=== PATIENT | male | born 1970 | race Caucasian/White ===

== ENCOUNTER 2020-10-13 14:14 | Emergency (ER) | payer MEDICAID, SELFPAY ==
[2020-10-13 14:15] VITALS: BP 118/67; PULSE 78; RESP 16; TEMP 36.7; O2SAT 98; BMI 17.4
--- NOTE | 2020-10-13 14:39 | HMH.EDWEAK ---
ED Disposition Clinical Impression: Left against medical advice, Lung mass, Hyponatremia Disposition: Left Against Medical Advice Condition on Discharge: Fair Referrals: Devon Main [Primary Care Provider] - - Critical Care Critical Care Time: No Attestation: On , the high probability of a clinically significant, sudden or life threatening deterioration of the following system(s) required my full and direct attention, intervention and personal management. The time I documented below is in addition to time spent performing reported procedures but includes the following listed in this critical care notation. Medical Decision Making - Medical Records Medical records reviewed: Yes: I reviewed the patient's medical records. - Mike Inquiry Pt receiving controlled substance: No Vital Signs: 10/13/20 14:15 10/13/20 15:30 10/13/20 16:00 Temperature 98.0 F Temperature Source Oral Pulse Rate Pulse Rate [Right] 78 77 77 Respiratory Rate 16 Blood Pressure Blood Pressure [Right Arm] 118/67 127/67 109/77 L Blood Pressure Mean [Right Arm] 84 87 87 Blood Pressure Source Blood Pressure Source [Right Arm] Automatic Cuff Automatic Cuff Automatic Cuff Blood Pressure Position Blood Pressure Position [Right Arm] Sitting Sitting Sitting 02 Sat by Pulse Oximetry 98 90 L 94 L Oxygen Delivery Method Room Air Room Air Room Air 10/13/20 17:29 Temperature 98 F Temperature Source Oral Pulse Rate 87 Pulse Rate [Right] Respiratory Rate 16 Blood Pressure 142/70 H Blood Pressure [Right Arm] Blood Pressure Mean [Right Arm] Blood Pressure Source Automatic Cuff Blood Pressure Source [Right Arm] Blood Pressure Position Sitting Blood Pressure Position [Right Arm] 02 Sat by Pulse Oximetry Oxygen Delivery Method Room Air - Lab Data Lab Results 10/13/20 14:28: WBC 14.9 H, RBC 4.17 L, Hgb 13.2 L, Hct 40.5 L, MCV 97.1 H, MCH 31.7 H, MCHC 32.7, RDW 12.9, Plt Count 412, MPV 7.6, Neut % (Auto) 82.2 H, Lymph % (Auto) 9.7 L, Mathews % (Auto) 6.8, Eos % (Auto) 0.3, Baso % (Auto) 1.0, Neut # (Auto) 12.3 H, Lymph # (Auto) 1.4, Mathews # (Auto) 1.0, Eos # (Auto) 0.0, Baso # (Auto) 0.2 12/28/20 14:28: PT 11.3, INR 1.02, APTT 29.3 10/13/20 14:28: Sodium 121 L, Potassium 3.2 L, Chloride 83 L, Carbon Dioxide 33 H, Anion Gap 8.2, BUN 3 L, Creatinine 0.50 L, Estimated Creat Clear 135, Estimated GFR 178, Est GFR ( Amer) 216, Glucose 240 H, Calcium 7.9 L, Magnesium 1.6, Total Bilirubin 0.6, AST 31, ALT 19, Alkaline Phosphatase 133 H, Total Protein 7.0, Albumin 2.9 L, Globulin 4.1 H, Albumin/Globulin Ratio 0.7 L 10/13/20 14:28: SARS-CoV-2 IgG Ab (Rapid) Negative, SARS-CoV-2 IgM Ab (Rapid) Negative Result diagrams: 10/13/20 14:28 10/13/20 14:28 Orders (Tests/Meds): ED MEDICATIONS Discontinued Medications Generic Name Dose Route Start Last Admin Trade Name Freq PRN Reason Stop Dose Admin Sodium Chloride 1,000 mls @ 999 mls/hr 10/13/20 14:45 10/13/20 15:08 Sod Chlor 0.9% 1000ml Bag IV 10/13/20 15:45 999 mls/hr .Q1H1M DANA Administration Iopamidol 75 ml 10/13/20 16:20 10/13/20 16:20 Iopamidol-370 (76%);100ml Bottle IV 10/13/20 16:21 75 ml ONCE ONE Administration Sodium Chloride 10 ml 10/13/20 16:20 10/13/20 16:20 Sodium Chloride 0.9% 10ml Syr (Rad Only) IV 10/13/20 16:21 10 ml ONCE ONE Administration ORDERS Category Date Time Status CT abdomen pelvis w con Stat Cat Scan 10/13/20 14:[address] chest w con Stat Cat Scan 10/13/20 14:[address] head/brain wo con Stat Cat Scan 10/13/20 14:42 Taken - CT Data CT Scan: Head, Abdomen, Chest Time Received: 18:[address] Reviewed: Yes: I have viewed the radiologist's interpretation Preliminary Findings: Abnormal Findings Narrative: Patient has mass in the left upper lobe with cavitary lesion surrounding. Concerning for lung metastatic disease. - ECG Data Tracing #1 I reviewed this ECG and interpreted as documente
--- NOTE | 2020-10-13 14:42 | CT_ITS ---
PROCEDURE: CT ABDOMEN PELVIS W CON CLINICAL INDICATION: malignancy evaluation, weight loss generalized abdominal pain COMPARISON: No exams were available for comparison TECHNIQUE: IV Contrast: 75ML OPTIRAY 350 Oral Contrast none given Axial images obtained with sagittal and coronal reformats. All CT scans at the facility use one or more dose reduction, viz: automated exposure control, ma/kV adjustment per patient size (including targeted exams where dose is matched to indication, i.e. head), or iterative reconstruction technique. FINDINGS: Lower thorax: There is postinflammatory scarring versus atelectasis right lower lateral chest chest the left base is clear. There is no pleural fluid. ABDOMEN: Liver: No masses or biliary dilatation. Gallbladder: Somewhat contracted but there are no definite gallstones or sludge seen. Pancreas: No masses or peripancreatic fluid collections. Spleen: unremarkable Adrenals: unremarkable Kidneys/ureters: Kidneys are normal in size and show symmetrical function both appearing normal ABDOMEN & PELVIS: Stomach bowel: The stomach and duodenal sweep appear normal. The proximal small bowel, there is mild fluid-filled dilated distal small bowel loops with mild bowel wall thickening. There is questionable bowel wall thickening mid and upper ascending colon. The transverse descending and sigmoid colon and rectum appear grossly normal.. Peritoneum: No abnormal fluid collections. No obvious inflammatory changes. No free air. Lymph nodes: No enlarged lymph nodes apparent. Vasculature: There is scattered arteriosclerotic calcification of the abdominal aorta been proximal common iliac arteries but there is no aneurysm. Bones: No acute fracture PELVIS: Reproductive: unremarkable Bladder: The urinary bladder is grossly normal. There is a small amount of free fluid in the pelvis of [place]. Appendix: The appendix is not definitely visualized but there are no definite pericecal inflammatory changes. IMPRESSION: Mildly dilated distal small bowel loops with mild bowel wall thickening and haziness and mild wall thickening of the upper ascending colon and findings are suggestive of ileal colitis Dictated by: Dr. Seth Mace MD 10/15/2020 07:55 Dr. Seth Mace MD in [place] 10/15/2020 07:55
--- NOTE | 2020-10-13 14:42 | CT_ITS ---
PROCEDURE: CT HEAD/BRAIN WO CON CLINICAL INDICATION: malignancy evaluation, headaches, recent weight loss COMPARISON: No exams were available for comparison TECHNIQUE: Axial images obtained. All CT scans at the facility use one or more dose reduction, viz: automated exposure control, ma/kV adjustment per patient size (including targeted exams where dose is matched to indication, i.e. head), or iterative reconstruction technique. 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 There is moderate ventriculomegaly. 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 There has been a previous left frontal craniotomy, the basilar cisterns, sylvian fissures and cortical sulci are somewhat prominent. There is no definite ischemic infarct and there is no bleed. There are no extra-axial fluid collections. The bony calvarium appears intact, the mastoids are clear. 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 Ronaldo cisterna magna noted as well. No definite acute intracranial pathology noted Dictated by: Dr. Seth Mace MD 10/13/2020 20:53 Dr. Seth Mace MD in [place] 10/13/2020 20:53
--- NOTE | 2020-10-13 14:42 | XR_ITS ---
PROCEDURE: XR CHEST PORTABLE CLINICAL HISTORY: weakness in legs, difficulty walking COMPARISON: No exams were available for comparison FINDINGS: The cardiomediastinal silhouette and pulmonary vascularity are within normal limits. The lungs are well expanded. There is slight lateral elevation right hemidiaphragm with mild blunting right costophrenic angle. There is a diffuse pneumonic infiltrate right upper lobe possible cavitary lesions near the apex. There is diffuse pleural thickening right apex. The left lung smith well expanded and clear. No acute bony abnormalities. IMPRESSION: Diffuse pneumonic infiltrate right upper lobe with pleural thickening and possible cavitation and diffuse pleural scarring right costophrenic angle and since there are no previous studies available for comparison consider follow-up CT scan of the chest for better overall evaluation. Dictated by: Dr. Seth Mace MD 10/13/2020 15:41 Dr. Seth Mace MD in [place] 10/13/2020 15:41
--- NOTE | 2020-10-13 14:42 | CT_ITS ---
PROCEDURE: CT CHEST W CON CLINCAL INDICATION: malignancy evaluation, abnormal chest film, weight loss COMPARISON: Portable upright chest 10/13/2020 TECHNIQUE: IV Contrast: 75ml Isovue 370 Axial images obtained with sagittal and coronal reformats. All CT scans at the facility use one or more dose reduction, viz: automated exposure control, ma/kV adjustment per patient size (including targeted exams where dose is matched to indication, i.e. head), or iterative reconstruction technique. FINDINGS: HEART AND MEDIASTINAL STRUCTURES: Unremarkable. LUNGS AND PLEURAL SPACES: There is diffuse infiltrate with multiple cavitary lesions right upper lobe the largest cavity the apical segment. There is pleural based mass partially fluid-filled at the lower extent of the complex cavitary infiltrate. This mass measures approximately 4.4 x 4.2 by 3.7 cm. Mild underlying emphysematous changes likely centrilobular seen in the upper lung smith bilaterally. There is minimal right paratracheal and right hilar adenopathy. Both lower lung smith are clear though there is minimal atelectasis or scarring at the right lateral base. BONY STRUCTURES: There incompletely healed left rib fractures involving left ribs 3, 4, 5 and 6. There is non recent compression fractures of 2 upper thoracic vertebrae likely T6 and T7. No obvious lytic or blastic lesions are seen the bony thorax. UPPER ABDOMEN: Unremarkable. ADDITIONAL FINDINGS: No other significant abnormalities. IMPRESSION: Markedly abnormal appearing right upper lobe with cavitary lesions and pleural base mass this appears to be strongly suggestive of bronchogenic carcinoma Dictated by: Dr. Seth Mace MD 10/15/2020 08:10 Dr. Seth Mace MD in [place] 10/15/2020 08:10
[2020-10-13 15:04] LABS: Basophils # 0.2 K/mm3 (0-0.2); Eosinophils % 0.3 % (0.1-12.0); Hematocrit 40.5 % (42.0-52.0); Hemoglobin 13.2 g/dL (14.1-18.0); Lymphocytes # 1.4 K/mm3 (0.7-4.5); Lymphocytes % 9.7 % (10-50); Mean Corpuscular HGB Conc 32.7 g/dL (31.8-35.4); Mean Corpuscular Hemoglobin 31.7 pg (27.0-31.2); Mean Corpuscular Volume 97.1 fl (80-94); Mean Platelet Volume 7.6 fl (7.4-10.4); Monocytes % 6.8 % (1.7-9.3); Neutrophils # 12.3 K/mm3 (1.8-7.8); Neutrophils % 82.2 % (37.0-80.0); Platelet Count 412 K/mm3 (142-424); Red Blood Count 4.17 M/mm3 (4.60-6.20); Red Cell Distribution Width 12.9 % (11.5-17.5); White Blood Count 14.9 K/mm3 (4.8-10.8)
[2020-10-13 15:09] LABS: Chloride 83 mmol/L (98-107); Potassium 3.2 mmoL/L (3.5-5.1); Sodium 121 mmol/L (136-145)
[2020-10-13 15:12] LABS: Alanine Aminotransferase 19 U/L (12-78); Albumin Level 2.9 g/dl (3.5-5.0); Albumin/Globulin Ratio 0.7 (1.1-1.8); Alkaline Phosphatase 133 U/L (38-126); Anion Gap 8.2 mEq/L (5-15); Aspartate Amino Transferase 31 U/L (17-59); Bilirubin,Total 0.6 mg/dl (0.2-1.3); Blood Urea Nitrogen 3 mg/dl (9-20); Calcium 7.9 mg/dl (8.4-10.2); Carbon Dioxide 33 mmol/L (22.0-30.0); Creatinine Clearance Estimated 135 mL/min (50-200); Estimated Glomerular Filt Rate 178 ml/min (>60); GFR (African American) 216 ML/MIN (>60); Globulin 4.1 g/dL (1.3-3.2); Glucose 240 mg/dl (74-100)
[2020-10-13 15:13] LABS: Magnesium 1.6 mg/dl (1.6-2.3)
[2020-10-13 15:14] LABS: Activated Partial Thrombo Time 29.3 seconds (23.6-34.0); INR 1.02 (0.9-1.1); Prothrombin Time 11.3 seconds (9.4-11.8)
[2020-10-13 15:30] VITALS: BP 127/67; PULSE 77; O2SAT 90
[2020-10-13 16:00] VITALS: BP 109/77; PULSE 77; O2SAT 94
[2020-10-13 17:17] LABS: Coronavirus 19 IgG Antibody Negative (Negative); Coronavirus 19 IgM Antibody Negative (Negative)
--- NOTE | 2020-10-13 17:27 | PC.NURSE ---
Dr. Harmon spoke with pt about admission. PT advised he wanted to speak with his . MD went back into speak with patient and declined admission. PT signed AMA form and left with no issues. Advised pt he need to follow up with PCP/.
[2020-10-13 17:29] VITALS: BP 142/70; PULSE 87; RESP 16; TEMP 36.6; O2SAT 98
== END 2020-10-13 17:31 | disposition left against medical advice (07) ==
PROVIDERS: Emergency Provider Student in an Organized Health Care Education/Training Program; PCP Internal Medicine
DX: R91.8 Other nonspecific abnormal finding of lung field (principal); E87.1 Hypo-osmolality and hyponatremia; J44.9 Chronic obstructive pulmonary disease, unspecified; F10.20 Alcohol dependence, uncomplicated; F17.210 Nicotine dependence, cigarettes, uncomplicated; R73.9 Hyperglycemia, unspecified; Z01.84 Encounter for antibody response examination
CPT/HCPCS: 70450; 71045; 71260; 74177; 80053; 83735; 85025; 85610; 85730; 86328; 96365; 99283; Q9967

== ENCOUNTER 2022-01-27 15:24 | Emergency (ER) | payer MEDICAID, SELFPAY ==
[2022-01-27] VITALS (9 sets, daily range): BP systolic 142–165; BP diastolic 90–104; PULSE 82–115; RESP 18–19; TEMP 36.6–36.7; O2SAT 97–99; BMI 17.9
--- NOTE | 2022-01-27 15:23 | PC.NURSE ---
Requesting medical records from [facility]
--- NOTE | 2022-01-27 15:32 | XR_ITS ---
FINAL REPORT CLINICAL HISTORY: weakness, SMOKER COMPARISON: October 13, 2020 FINDINGS: SINGLE VIEW CHEST. The heart is mildly enlarged. The mediastinum is unremarkable. There is volume loss in the right hemithorax. There is abnormal opacity at the right apex consistent with pleural parenchymal scarring. There is no pneumothorax. IMPRESSION: Pulmonary hyperinflation consistent with obstructive airways disease. Progressive volume loss with pleural and parenchymal scarring at the right apex. Reviewed, Interpreted and Dictated by José De Los Santos MD Transcribed by Meryl Lamas Authenticated by José De Los Santos MD on 01/27/2022 04:38:57 PM [facility]
[2022-01-27 15:41] LABS: Basophils # 0.1 K/mm3 (0-0.2); Basophils % 1.2 % (0.1-2.0); Eosinophils # 0.2 K/mm3 (0.0-0.4); Eosinophils % 1.8 % (0.1-12.0); Hematocrit 46.7 % (42.0-52.0); Hemoglobin 15.7 g/dL (14.1-18.0); Lymphocytes # 1.2 K/mm3 (0.7-4.5); Lymphocytes % 13.9 % (10-50); Mean Corpuscular HGB Conc 33.6 g/dL (31.8-35.4); Mean Corpuscular Hemoglobin 32.2 pg (27.0-31.2); Mean Corpuscular Volume 95.9 fl (80-94); Mean Platelet Volume 8.1 fl (7.4-10.4); Monocytes % 11.7 % (1.7-9.3); Neutrophils # 6.2 K/mm3 (1.8-7.8); Neutrophils % 71.4 % (37.0-80.0); Platelet Count 340 K/mm3 (142-424); Red Blood Count 4.87 M/mm3 (4.60-6.20); Red Cell Distribution Width 13.5 % (11.5-17.5); White Blood Count 8.8 K/mm3 (4.8-10.8)
--- NOTE | 2022-01-27 15:41 | ECG_ITS ---
APPROVED REPORT Exam: Resting ECG HR:89 bpm ECG Measurements Heart Rate 89 AXES UT 159 P 70 QRSd 102 QRS 61 QT 393 T 74 QTc 440 Conclusion SINUS RHYTHM TALL T-WAVES, SUGGESTS HYPERKALEMIA ABNORMAL ECG UNCONFIRMED REPORT Electronically signed by : Jace Gonzalez MD 01/28/2022 17:42:40
[2022-01-27 15:43] LABS: Chloride 87 mmol/L (98-107); Potassium 3.7 mmoL/L (3.5-5.1); Sodium 124 mmol/L (136-145)
[2022-01-27 15:46] LABS: Alanine Aminotransferase 26 U/L (12-78); Albumin Level 4.5 g/dl (3.5-5.0); Alkaline Phosphatase 187 U/L (38-126); Anion Gap 14.7 mEq/L (5-15); Aspartate Amino Transferase 54 U/L (17-59); Blood Urea Nitrogen 8 mg/dl (9-20); Carbon Dioxide 26 mmol/L (22.0-30.0); Creatinine Clearance Estimated 135 mL/min (50-200); Estimated Glomerular Filt Rate 177 ml/min (>60); GFR (African American) 214 ML/MIN (>60); Globulin 4.4 g/dL (1.3-3.2); Total Protein,Serum 8.9 g/dl (6.3-8.2)
[2022-01-27 15:47] LABS: Calcium 8.6 mg/dl (8.4-10.2); Glucose 85 mg/dl (74-100)
--- NOTE | 2022-01-27 15:53 | PC.NURSE ---
Received records from [facility]
--- NOTE | 2022-01-27 16:23 | HMH.EDGENADL ---
ED Disposition Clinical Impression: Weakness, Alcoholism, Hyponatremia Right hand fracture Qualifiers: Encounter type: initial encounter Fracture type: closed Qualified Code(s): S62.91XA - Unspecified fracture of right wrist and hand, initial encounter for closed fracture Multiple rib fractures Qualifiers: Encounter type: initial encounter Fracture type: closed Laterality: unspecified laterality Qualified Code(s): S22.49XA - Multiple fractures of ribs, unspecified side, initial encounter for closed fracture Sternal fracture Qualifiers: Encounter type: initial encounter Sternal location: unspecified Fracture type: closed Qualified Code(s): S22.20XA - Unspecified fracture of sternum, initial encounter for closed fracture Lumbar transverse process fracture Qualifiers: Encounter type: initial encounter Fracture type: closed Qualified Code(s): S32.009A - Unspecified fracture of unspecified lumbar vertebra, initial encounter for closed fracture Thoracic compression fracture Qualifiers: Encounter type: initial encounter Thoracic vertebra fracture level: unspecified thoracic vertebra Qualified Code(s): S22.000A - Wedge compression fracture of unspecified thoracic vertebra, initial encounter for closed fracture Scapula fracture Qualifiers: Encounter type: initial encounter Scapula location: coracoid process Fracture type: closed Fracture alignment: nondisplaced Laterality: right Qualified Code(s): S42.134A - Nondisplaced fracture of coracoid process, right shoulder, initial encounter for closed fracture Clavicle fracture Qualifiers: Encounter type: initial encounter Clavicle location: sternal end Fracture type: closed Fracture alignment: nondisplaced Laterality: left Qualified Code(s): S42.018A - Nondisplaced fracture of sternal end of left clavicle, initial encounter for closed fracture Humerus fracture Qualifiers: Encounter type: initial encounter Humerus Location: proximal Fracture type: closed Fracture morphology: unspecified fracture morphology Laterality: left Qualified Code(s): S42.202A - Unspecified fracture of upper end of left humerus, initial encounter for closed fracture Disposition: Left Against Medical Advice Condition on Discharge: Serious Referrals: Devon Main [Primary Care Provider] - - Critical Care Critical Care Time: No Attestation: On 01/27/22, the high probability of a clinically significant, sudden or life threatening deterioration of the following system(s) required my full and direct attention, intervention and personal management. The time I documented below is in addition to time spent performing reported procedures but includes the following listed in this critical care notation. Medical Decision Making - Medical Records Medical records reviewed: Yes: I reviewed the patient's medical records. MR Comment: Emergency department note from [facility] obtained from visit 01/25/2022, reviewed. Patient is reported to have gone there for a fall with an injury to his ribs and his hand. He was diagnosed with a displaced angulated fracture of the first proximal metacarpal. He had x-rays of his left ribs which showed multiple rib fractures most appeared to be healing. - Mike Inquiry Pt receiving controlled substance: No Vital Signs: 01/27/22 15:19 01/27/22 15:25 01/27/22 15:30 Temperature 97.9 F Temperature Source Oral Pulse Rate Pulse Rate [Left Radial] 88 Respiratory Rate 18 Blood Pressure 163/101 H 155/103 H Blood Pressure [Right Arm] 163/101 H Blood Pressure Mean 116 114 Blood Pressure Mean [Right Arm] 121 Blood Pressure Source [Right Arm] Automatic Cuff Blood Pressure Position [Right Arm] Sitting 02 Sat by Pulse Oximetry 98 Oxygen Delivery Method Room Air 01/27/22 16:00 01/27/22 16:30 Temperature Temperature Source Pulse Rate 115 H 100 H Pulse Rate [Left Radial] Respiratory Rate Blood Pressure 165/102 H 162/104 H Blood Pressure [R
--- NOTE | 2022-01-27 16:27 | PC.NURSE ---
ED MD at
--- NOTE | 2022-01-27 16:46 | CT_ITS ---
PROCEDURE INFORMATION: Exam: CT Chest With Contrast; Diagnostic Exam date and time: 01/27/2022 5:30 PM Age: 51 years old Clinical indication: Injury or trauma; Fall; Blunt trauma (contusions or hematomas); Additional info: Falls x 3 days ago TECHNIQUE: Imaging protocol: Diagnostic computed tomography of the chest with contrast. Radiation optimization: All CT scans at this facility use at least one of these dose optimization techniques: automated exposure control; mA and/or kV adjustment per patient size (includes targeted exams where dose is matched to clinical indication); or iterative reconstruction. Contrast material: ISOVUE; Contrast volume: 75 ml; Contrast route: IV; COMPARISON: CT CHEST W CON 10/13/2020 4:10 PM FINDINGS: Lungs: There is residual cystic emphysematous change in the right lung apex, with decreased size and density of cavitary masses compared with 10/13/2020, consistent with improved malignancy or infection since the prior exam. Residual dense fibrosis or scarring in the right apex with likely traction bronchiectasis. Milder patchy interstitial disease in the left apex appears chronic compared with the prior exam. No acute consolidation. New atelectasis in the posterior lower lungs. Pleural spaces: No pleural effusion. No pneumothorax. Right apical pleural thickening. Heart: The heart appears within upper limits normal. No significant pericardial effusion. Coronary artery calcification is present. Lymph nodes: Small calcified mediastinal and hilar lymph nodes.No significantly enlarged lymph nodes by short axis criteria. Aorta: There is no aortic aneurysm. Calcified atherosclerotic plaques. Bones/joints: Multiple thoracic vertebral body compression fracture deformities appear chronic compared with the prior CT from 10/13/2020. The posteromedial right 5th rib fracture deformity appears chronic compared with 2020, but the medial 6th through 9th rib deformities appear new compared with the prior exam , though also having a likely chronic or subacute appearance with some bony remodeling. Posteromedial left 12th and 11th rib fracture deformities are new compared with 2020, though also indeterminate age with some bony remodeling. Multiple other rib deformities are chronic compared with the prior CT. There is an acute appearing avulsion fracture suggested through the base of the coracoid process of the right scapula on series 3, images 12 -15, and sagittal images 20-22, nondisplaced, and new compared with the prior CT. There is a new fracture deformity of the medial left clavicle with over riding, coronal images 28-30 and axial series 3, images 20 5-29, though this appears more likely chronic or subacute than acute. There is a new impacted fracture of the left humerus neck compared with the prior CT. Soft tissues: There are no soft tissue masses or fluid collections. No soft tissue emphysema. IMPRESSION: 1. New acute appearing avulsion fracture of the coracoid process of the right scapula, nondisplaced. 2. A new comminuted and impacted left humerus neck fracture since the prior exam. 3. Medial left clavicle fracture is new compared with the prior CT, though appearing more likely subacute in the interval rather than acute today, correlate clinically. 4. Multiple thoracic vertebral compression fractures are chronic compared with the prior CT. 5. Most of the patient's rib fracture deformities are chronic compared with the prior CT. However, some are new in the interval, though also appearing more likely subacute than acute, including posteromedial right 6th through 9th rib fracture deformities, posterior and media
--- NOTE | 2022-01-27 16:46 | CT_ITS ---
PROCEDURE INFORMATION: Exam: CT Abdomen And Pelvis With Contrast Exam date and time: 01/27/2022 5:30 PM Age: 51 years old Clinical indication: Injury or trauma; Fall; Blunt; Generalized; Additional info: Falls x 3 days ago. TECHNIQUE: Imaging protocol: Computed tomography of the abdomen and pelvis with contrast. Radiation optimization: All CT scans at this facility use at least one of these dose optimization techniques: automated exposure control; mA and/or kV adjustment per patient size (includes targeted exams where dose is matched to clinical indication); or iterative reconstruction. Contrast material: ISOVUE; Contrast volume: 75 ml; Contrast route: IV; COMPARISON: CT ABDOMEN PELVIS W CON 10/13/2020 4:10 PM FINDINGS: Lungs: For chest and pulmonary findings, please see the chest CT report. Liver: No hepatomegaly. No laceration, hematoma or mass. Benign periligamentous fatty changes noted in the left lobe of liver. Gallbladder and bile ducts: The gallbladder is unremarkable. No calcified stones or biliary dilatation. Pancreas: The pancreas is normal. Spleen: Chronic lobulated contours of the spleen compared with 10/13/2020, no acute laceration or hematoma. No splenomegaly. Adrenal glands: The adrenal glands are normal. Kidneys and ureters: The kidneys are normal. The ureters are normal. Stomach and bowel: The stomach is normal. Prominent fluid-filled pelvic small intestinal loops with air-fluid levels, but no dilated loops or mucosal thickening.There is no evidence of intestinal perforation or obstruction. Appendix: No findings of appendicitis. Intraperitoneal space: There is no free intraperitoneal air. There is no significant free intraperitoneal fluid. Arteries: There is no aortic aneurysm.The vasculature demonstrates scattered mild atherosclerotic calcification. No active contrast extravasation/active arterial bleeding is seen in the abdomen or pelvis, though this study was not performed with CTA technique, limiting sensitivity. Veins: No portal venous gas. Lymph nodes: No significantly enlarged lymph nodes by short axis criteria. Urinary bladder: Thickened urinary bladder wall which may be in part due to hypo distension, but may be due to bladder hypertrophy or history of cystitis. No calcified stones. Reproductive: No significant prostate enlargement. Prostate calcifications. Seminal vesicles are unremarkable. Bones/joints: Acute nondisplaced left L3 transverse process fracture, chronic bilateral L5 spondylolysis, and mild spinal degenerative changes; please see the lumbar spine CT report for details. There are also multiple bilateral rib fracture deformities of varying ages, please see the chest CT report for details. No acute pelvic or hip fracture or dislocation. 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 Soft tissues: Chronic loculated ovoid fluid collection in the presternal region associated with old fracture of the body of the sternum. No other loculated fluid collection or mass in the soft tissues. IMPRESSION: 1. Acute nondisplaced left L3 transverse process fracture. 2. No other acute appearing fracture or dislocation in the abdomen and pelvis. Chronic bilateral L5 spondylolysis. 3. Multiple rib fracture deformities of varying ages, please see the chest CT report for details. 4. Old fracture of the body of the sternum with loculated presternal hematoma or seroma, chronic compared with 10/13/2020. 5. No acute visceral injury, free fluid, or free air detected. 6. Some prominent fluid-filled pelvic bowel loops with air-fluid levels, which could be slight ileus or enteritis.There is no evidence of int
--- NOTE | 2022-01-27 16:46 | CT_ITS ---
PROCEDURE INFORMATION: Exam: CT Thoracic Spine Without Contrast Exam date and time: 01/27/2022 5:19 PM Age: 51 years old Clinical indication: Injury or trauma; Fall; Blunt trauma (contusions or hematomas); Additional info: Fall x 3 days ago, weakness TECHNIQUE: Imaging protocol: Computed tomography images of the thoracic spine without contrast. Radiation optimization: All CT scans at this facility use at least one of these dose optimization techniques: automated exposure control; mA and/or kV adjustment per patient size (includes targeted exams where dose is matched to clinical indication); or iterative reconstruction. COMPARISON: CT CERVICAL SPINE WO CON 01/27/2022 5:16 PM FINDINGS: Vertebrae: There is a moderately severe T7 vertebral body wedge compression fracture deformity, moderate T6 fracture, mild T4,T5 and T2 compressions, minimal T3 and T11 compressions; these appear chronic with no acute fracture lines visible. Multiple chronic midthoracic compression fractures were reported on the prior chest CT from 10/13/2020, those images are not available for direct comparison. No definite new, acute fracture is visible. There is associated prominent thoracic kyphosis. There are no lytic skeletal lesions seen. Discs/Spinal canal/Neural foramina: Mild posterior retropulsion of lower endplate cortex at T7 indenting the thecal sac, and mildly narrowing the spinal canal. There is no high-grade central spinal stenosis. The T7 foramina appear moderately stenosed, and there is mild narrowing of other foramina, but no high-grade foraminal stenoses. Degenerative disc narrowing with spondylosis greatest T7-T8, milder at other levels. Other bones/joints: Posterior left 11th and 12th rib fracture deformities of indeterminate age, appearing more likely chronic than acute, prior images are not available to compare. There are also multiple rib deformities at and abutting the costovertebral joints which appear likely due to old trauma or degenerative change rather than acute injuries, prior studies not available to compare . These are most prominent at T6 through T9 levels. Soft tissues: No acute findings. No paraspinous mass or fluid collection. Vasculature: No thoracic aortic aneurysm, as visualized. Scattered calcified atherosclerotic plaques. Lymph nodes: Calcified mediastinal and hilar lymph nodes. Lungs: Prominent bilateral interstitial lung disease. Parenchymal scarring and cystic changes are greatest at the right lung apex. Right upper lobe bronchiectasis. Right apical pleural thickening. Heart: Coronary artery calcification is present. IMPRESSION: 1. Multiple thoracic vertebral compression deformities most severe at T7, as detailed above; these are indeterminate age but appear likely chronic with no acute fracture lines visible. Prior chest CT from 10/13/2020 is not available on PACS for comparison, but chronic midthoracic compression fractures were reported on that study. If further imaging is warranted by the clinical findings or course, MRI may help to more accurately differentiate chronic from recent injuries. 2. Thoracic kyphosis. 3. Mild degenerative central spinal stenosis at T7-T8. No high-grade spinal stenosis. Moderate stenosis of the T7 foramina, no high-grade foraminal stenoses. 4. Multiple bilateral rib fracture deformities of indeterminate age, but also appearing more likely chronic. 5. Mild disc narrowing and spondylosis, greatest in the midthoracic spine. 6. Severe chronic pulmonary and pleural disease as detailed above. 7. Additional nonemergency and chronic findings as above. Electronically signed by MD anshul Choi
--- NOTE | 2022-01-27 16:46 | XR_ITS ---
PROCEDURE INFORMATION: Exam: XR Pelvis Exam date and time: 01/27/2022 5:05 PM Age: 51 years old Clinical indication: Injury or trauma; Fall; Blunt trauma (contusions or hematomas); Bilateral; Hip; Additional info: Falls x 3days ago. TECHNIQUE: Imaging protocol: XR pelvis. Views: 1 or 2 view. COMPARISON: CT ABDOMEN PELVIS W CON 10/13/2020 4:10 PM FINDINGS: Bones/joints: No acute fracture or dislocation. Minimal superior hip joint space narrowing, bilaterally. No significant bony arthritic deformities at the hips. Mild lower lumbar spondylosis. Bilateral L5 pars defects are seen on the prior CT of 10/13/2020, but suboptimally demonstrated on this exam. Small chronic spina bifida occulta defect at S1. Soft tissues: No acute findings in the soft tissues, as visualized. Vasculature: Atherosclerotic calcified plaques noted bilaterally in the pelvis. 4 mm rounded calcification in the lower left pelvis is a chronic phlebolith when compared with the prior CT. IMPRESSION: 1. No acute fracture or dislocation. 2. Lower lumbar degenerative changes. Bilateral L5 spondylolysis was better seen on the prior CT than on this pelvis x-ray. 3. No significant arthritic changes at the hips. 4. Atherosclerotic disease. 5. Additional nonemergency and chronic findings as above.
--- NOTE | 2022-01-27 16:46 | CT_ITS ---
PROCEDURE INFORMATION: Exam: CT Lumbar Spine Without Contrast Exam date and time: 01/27/2022 5:25 PM Age: 51 years old Clinical indication: Injury or trauma; Fall; Blunt trauma (contusions or hematomas); Additional info: Fall x 3 days ago, weakness, C/O back pain TECHNIQUE: Imaging protocol: Computed tomography images of the lumbar spine without contrast. Radiation optimization: All CT scans at this facility use at least one of these dose optimization techniques: automated exposure control; mA and/or kV adjustment per patient size (includes targeted exams where dose is matched to clinical indication); or iterative reconstruction. COMPARISON: CT THORACIC SPINE WO CON 01/27/2022 5:19 PM FINDINGS: Vertebrae: There is an acute appearing nondisplaced fracture of the left transverse process of L3 series 5, images 53-56 . No other acute appearing fracture is seen in the lumbar spine. There is chronic bilateral L5 spondylolysis, with minimal grade 1 anterolisthesis L5-S1. No high-grade listhesis. There are no lytic skeletal lesions seen in the lumbar spine. Discs/Spinal canal/Neural foramina: Minimal disc narrowing in the lumbar spine. Slight multilevel anterior spondylosis. Shallow posterior disc bulges minimally indenting the thecal sac, no significant central spinal stenosis. There is asymmetric left intraforaminal disc bulge or protrusion at L4-L5 which moderately narrows the left L4 foramen series 6, image 74 and sagittal series 1002, image 54, but no nerve compression is seen. There is also asymmetric left posterolateral bulging or shallow protrusion at L5-S1 contributing to moderate left L5 foraminal stenosis series 6, image 84 and sagittal series 1002 image 55, with no lateral nerve compression. Soft tissues: No paraspinous mass or fluid collection. For abdomen-pelvis findings, please see the abdomen pelvis CT report. Other findings: For discussion of Thoracic bone injuries, please see the chest CT report. IMPRESSION: 1. Acute nondisplaced fracture of the left L3 transverse process. 2. No other acute appearing fracture is seen in the lumbar spine. 3. Chronic bilateral L5 spondylolysis, with minimal grade 1 anterolisthesis L5-S1. 4. Left posterolateral disc bulges or shallow protrusions at L4-L5 and L5-S1, moderately narrowing the left L4 and L5 neural foramina; no high-grade stenosis or nerve compression is seen. 5. Additional nonemergency and chronic findings as above.
--- NOTE | 2022-01-27 16:46 | CT_ITS ---
PROCEDURE INFORMATION: Exam: CT Head Without Contrast Exam date and time: 01/27/2022 5:16 PM Age: 51 years old Clinical indication: Injury or trauma; Fall TECHNIQUE: Imaging protocol: Computed tomography of the head without contrast. Radiation optimization: All CT scans at this facility use at least one of these dose optimization techniques: automated exposure control; mA and/or kV adjustment per patient size (includes targeted exams where dose is matched to clinical indication); or iterative reconstruction. COMPARISON: CT HEAD/BRAIN WO CON 10/13/2020 4:05 PM FINDINGS: Brain: Compared with 10/13/2020, there are 2 new tiny hyperdense nodules in the left hemisphere, 1 appears located along the lateral surface of the left lateral ventricle protruding into the ventricle, and the other located immediately deep to the lateral ventricle, these measure approximately 8 mm greatest length, and up to 5 mm diameter; see axial series 3 images 36-37, coronal series 1001, images 33-36. These could be tiny subependymal hematomas versus hyperdense neoplasm. There is chronic cystic encephalomalacia in the left frontal lobe with porencephalic cyst formation, unchanged. Chronic patchy periventricular white matter disease/hypoattenuation. Chronic encephalomalacia in the anterior left subinsular white matter/external capsule. No significant edema, swelling or mass effect in the interval. Chronic ronaldo cisterna magna. Chronic mild generalized cerebral cortical atrophy/volume loss. Cerebral ventricles: Chronic moderate generalized ventriculomegaly, unchanged. New tiny left sub ependymal nodules, see brain discussion above. Paranasal sinuses: Hypoplastic frontal sinuses. Mild bilateral ethmoid mucosal thickening, some new opacified air cells in the anterior left ethmoid. No acute air-fluid levels, as visualized. Mastoid air cells: Visualized mastoid air cells are well aerated. Vasculature: A few calcified plaques in the internal carotid artery siphons. Bones/joints: Chronic left frontal craniotomies and orbital surgical changes with metallic plates and screws. No acute skull fracture. No lytic lesions. Chronic sclerotic left parietal bone lesion of approximately 1.6 cm coronal image 48 and axial series 3, image 28, unchanged, correlate for history of blastic metastasis. Soft tissues: There are no soft tissue masses or fluid collections. IMPRESSION: 1. Compared with 10/13/2020, there are 2 new ovoid 8 x 5 mm hyperdense sub-ependymal nodules along the lateral surface of the left lateral ventricle; these could be neoplastic, or considering the history of trauma tiny subependymal hematomas would also be a consideration. 2. No other significant interval change or acute findings compared with 10/13/2020. 3. Chronic left frontal lobe encephalomalacia, generalized cerebral atrophy, enlarged cisterna magna, left frontal craniotomies, chronic ventriculomegaly, and sclerotic left parietal skull lesion again noted.
--- NOTE | 2022-01-27 16:46 | CT_ITS ---
PROCEDURE INFORMATION: Exam: CT Cervical Spine Without Contrast Exam date and time: 01/27/2022 5:16 PM Age: 51 years old Clinical indication: Injury or trauma; Fall; Blunt trauma; Additional info: Fall x 3 days ago, weakness TECHNIQUE: Imaging protocol: Computed tomography images of the cervical spine without contrast. Radiation optimization: All CT scans at this facility use at least one of these dose optimization techniques: automated exposure control; mA and/or kV adjustment per patient size (includes targeted exams where dose is matched to clinical indication); or iterative reconstruction. COMPARISON: CT CHEST W CON 10/13/2020 4:10 PM FINDINGS: Bones/joints: No acute appearing cervical spine fracture or significant listhesis. Mild degenerative osteoarthrosis anteriorly C1-C2 with periarticular sclerosis and spurs. No lytic lesions in the cervical spine. Discs/Spinal canal/Neural foramina: Prominent anterior spondylosis C5-C6 and C6-C7. Mild posterior disc space narrowing throughout. Some shallow posterior disc bulges or protrusions most prominent at C3-C4 and C5-C6, minimally indenting the thecal sac and mildly narrowing the central spinal canal. There is no high-grade spinal stenosis. There is cervical facet arthropathy greatest on the left at C3-C4, contributing to mild-moderate left C4 foraminal stenosis. There is also mild narrowing of the C5 foramina, bilaterally. No high-grade foraminal stenosis. Dental: Dental/periodontal disease; there are dental caries within multiple upper and lower molar teeth bilaterally, and some apical radiolucency suggesting some loosened teeth or apical abscess. Lungs: Prominent apical lung disease, please see the chest CT report for details. Soft tissues: No acute findings in the paraspinous soft tissues. No prevertebral swelling. No loculated fluid collection or mass. Other findings: Impacted left humerus neck fracture, and medial left clavicle fracture, better seen on the chest CT. IMPRESSION: 1. No acute cervical spine fracture or significant listhesis. 2. Mild degenerative changes as detailed above. The central spinal canal is mildly narrowed at several levels, but there is no high-grade spinal stenosis. [id number] narrowing of the left C4 foramen and of the C5 foramina, no high-grade foraminal stenoses or nerve compression seen. 3. Dental/periodontal disease with dental caries and possible apical dental abscesses or loosened teeth. 4. Additional findings as detailed above, including multiple chest fractures and apical lung disease, as detailed on the chest CT report.
[2022-01-27 16:48] LABS: Ethyl Alcohol < 10 mg/dl (0-10)
--- NOTE | 2022-01-27 16:56 | XR_ITS ---
PROCEDURE INFORMATION: Exam: XR Right Hand Exam date and time: 01/27/2022 5:05 PM Age: 51 years old Clinical indication: Injury or trauma; Fall; Blunt trauma (contusions or hematomas); Hand; Right; Additional info: Fall, injury TECHNIQUE: Imaging protocol: XR Right hand. Views: 3 or more views. COMPARISON: No relevant prior studies available. FINDINGS: Bones/joints: Acute minimally comminuted fracture of the proximal metaphysis of the 1st metacarpal bone. A transverse fracture extends through the metaphysis, with mild proximal displacement and overriding of the distal fracture fragment. There is 3-6 mm lateral displacement of the major distal fracture fragment on various views. There is a likely 5 mm cortical avulsion fragment along the medial margin of the larger fracture. No evidence of dislocation of the base of the 1st metacarpal, at the 1st carpal-metacarpal joint. There is an old healed fracture deformity of the proximal diametaphysis of the 4th metacarpal bone, with some bony remodeling along the lateral and dorsal surface of the bone. The bones otherwise appear intact and normally aligned with grossly normal mineralization.No significant arthritic deformities. There are no lytic skeletal lesions seen. Soft tissues: Soft tissue swelling at the base of thumb.No radiopaque foreign bodies seen. IMPRESSION: 1. Acute mildly displaced fracture of the proximal metaphysis of the 1st metacarpal bone. 2. An old healed fracture deformity of the proximal diametaphysis of the 4th metacarpal bone.
[2022-01-27 17:00] LABS: Phenytoin (Dilantin) 7.4 ug/ml (10-20)
[2022-01-27 17:01] LABS: Microscopic, Urine URINE MICROSCOPIC (MICROSCOPIC)
[2022-01-27 17:31] LABS: Appearance,Urine CLEAR (Clear); Blood, Urine 1+ (Negative); Color,Urine DK YELLOW (Yellow); Glucose,Urine (UA) Negative (Negative); Ketones,Urine 3+ (Negative); Leukocyte Esterase,Urine Negative (Negative); Nitrate,Urine Negative (Negative); Protein,Urine Negative (Negative); Urobilinogen,Urine 0.2 EU/dl (0.2)
[2022-01-27 17:32] LABS: Bilirubin,Urine 2+ (Negative)
[2022-01-27 17:40] LABS: Benzodiazepines Screen,Urine Negative ng/ml (<200)
[2022-01-27 17:41] LABS: Amphetamine/Metha Screen,Urine Negative ng/ml (<1000)
[2022-01-27 17:42] LABS: Barbiturates Screen,Urine Negative ng/ml (<200); Cannabinoid Screen,Urine Negative ng/ml (<50)
[2022-01-27 17:43] LABS: Cocaine Screen,Urine Negative ng/ml (<300); Methadone Screen,Urine Negative ng/ml (<300)
[2022-01-27 17:44] LABS: Opiate Screen,Urine Negative ng/ml (<300)
[2022-01-27 17:45] LABS: Phencyclidine Screen,Urine Negative ng/ml (<25)
[2022-01-27 17:49] LABS: Bacteria,Urine 1+ /lpf
--- NOTE | 2022-01-27 19:41 | PC.NURSE ---
Addendum entered by Mitzy Mazariegos RN 01/27/22 20:30: Correction pt's girl-friend not Original Note: Pt's came to [facility] clerks desk and states that pt wants to leave AMA. This RN spoke with pt and his and given his difficulty with ambulation and weakness educated it is advised they wait for results to discuss w/ MD. Pt states well just call me when you get results . They were educated that they would be notified with any critical findings but others would need to follow up their care with PCP and instructed on how to obtained medical records of they would like. AMA form signed. supervisor customer services notified.
--- NOTE | 2022-01-27 19:42 | PC.NURSE ---
This RN also educated pt that he would possibility need admission to hospital given his new and known fractures. Pt states No. I am going to go home . Pt's girlfriend states she has been and will help take care of him. notified.
--- NOTE | 2022-01-27 21:00 | PC.NURSE ---
Dr. Thapa s/w [facility]
== END 2022-01-27 19:48 | disposition left against medical advice (07) ==
PROVIDERS: Emergency Provider Emergency Medicine; PCP Internal Medicine
DX: S42.134A Nondisplaced fracture of coracoid process, right shoulder, initial encounter for closed fracture (principal); S42.018A Nondisplaced fracture of sternal end of left clavicle, initial encounter for closed fracture; S22.49XA Multiple fractures of ribs, unspecified side, initial encounter for closed fracture; S62.91XA Unspecified fracture of right hand, initial encounter for closed fracture; S22.20XA Unspecified fracture of sternum, initial encounter for closed fracture; S42.202A Unspecified fracture of upper end of left humerus, initial encounter for closed fracture; F10.20 Alcohol dependence, uncomplicated; W18.39XA Other fall on same level, initial encounter; Y92.009 Unspecified place in unspecified non-institutional (private) residence as the place of occurrence of the external cause
CPT/HCPCS: 70450; 71045; 71260; 72125; 72128; 72131; 72170; 73130; 74177; 80053; 80185; 80305; 81001; 85025; 93005; 99285; Q9967